=== PATIENT | male | born 1955 | race Caucasian/White ===

== ENCOUNTER 2018-06-22 15:04 | Emergency (ER) | END 2018-06-22 16:17 | disposition home or self-care (01) ==

== ENCOUNTER 2018-09-19 14:52 | Emergency (ER) | payer OTHER ==
[~2018-09-19] VITALS: Ht 172.7 cm; Wt 90.0 kg
[~2018-09-19 14:52] MED LIST: HC30CR25 TOP
[2018-09-19 15:06] VITALS: BP 140/78; PULSE 92; RESP 20; Ht 172.7 cm; Wt 90.0 kg
[2018-09-19] MEDS ORDERED: SULF1TAB31 PO (18:55)
[2018-09-19] MEDS ORDERED: CEPH-443 PO (18:55)
--- NOTE | 2018-09-19 20:54 | ERD ---
ER Documentation Chief Complaint Chief Complaint multiple rash on genital area - abscess; already presdribed w/ cream by pmd HPI 63-year-old male presents with history of mass on his upper left scrotal area. States the mass started 2 weeks ago and has been progressively getting bigger. States that it does not hurt when palpated. He denies any dysuria, fevers, or pain. Denies any testicular pain or any trauma to the area. Not taking any treatments. ROS All systems reviewed and are negative except as per history of present illness. Medications Home Meds Active Scripts Cephalexin* (Keflex*) 500 Mg Capsule, 500 MG PO QID for cyst for 7 Days, CAP Prov:FRANCISCO STEVEN 09/19/18 Sulfamethoxazole/Trimethoprim* (Bactrim Ds* Tablet) 1 Each Tablet, 1 TAB PO BID for cyst for 7 Days, #14 TAB Prov:FRANCISCO STEVEN 09/19/18 Hydrocortisone* Topical (Hydrocortisone* Topical) 2.5%-28.3 Gm Cream..g., 1 APPLIC TOP BID, #1 TUB Prov:MARIS SEYMOUR MD 06/22/18 Allergies Allergies: Coded Allergies: No Known Allergy (Unverified , 06/22/18) PMhx/Soc Medical and Surgical Hx: pt denies Surgical Hx Hx Cardiac Disorders: Yes (HTN) Hx Miscellaneous Medical Probl: Yes (DM) Hx Alcohol Use: Yes Hx Substance Use: No Hx Tobacco Use: Yes Smoking Status: Never smoker Physical Exam Vitals Vital Signs Date Temp Pulse Resp B/P (MAP) Pulse Ox O2 O2 Flow FiO2 Time Delivery Rate 09/19/18 98.7 92 20 140/78 98 15:06 (98) Physical Exam Const: No acute distress Head: Atraumatic Eyes: Normal Conjunctiva ENT: Normal External Ears, Nose and Mouth. Neck: Full range of motion. No meningismus. Resp: Clear to auscultation bilaterally Cardio: Regular rate and rhythm, no murmurs : Approximately 1 cm round indurated mass located in the upper left scrotal area. Mass is nonfluctuant or erythematous and nontender to palpation. Mass is contained within the scrotal wall and not affecting the testicles. Testicles are non-tender to palpation and nonedematous. There is no transverse lie. Otherwise scrotum is nonerythematous or edematous. Neur: Awake and alert Psych: Normal Mood and Affect Procedures/MDM 63-year-old male presents with history of mass on his upper left scrotal area. States the mass started 2 weeks ago and has been progressively getting bigger. States that it does not hurt when palpated. He denies any dysuria, fevers, or pain. Denies any testicular pain or any trauma to the area. Not taking any treatments. Mass is indurated, nonfluctuant, tender to palpation or erythematous. There is no indication for drainage. Mass is consistent with possible cyst. Patient was prescribed Bactrim and Keflex and advised to return in 7 days to see if the mass gone gone down in size. In addition patient was advised to use warm compresses and soaks. There is no associated pain. I have low suspicion for testicular torsion, epididymitis, testicular cancer, or any other emergent condition. Denies past medical history. Denies allergies. Denies medications. Denies surgeries. Denies alcohol, tobacco, drug use. Up to date on vaccines. Departure Diagnosis: Primary Impression: Cyst Condition: Stable Patient Instructions: Abscess, Antiobiotic Treatment Only Additional Instructions: FOLLOW UP WITH YOUR PRIMARY CARE PHYSICIAN TOMORROW.Return to this facility if you are not improving as expected. Return to hospital in one week to have cyst revaluated after completion of antibiotics. FRANCISCO STEVEN Sep 19, 2018 20:54
== END 2018-09-19 19:22 | disposition home or self-care (01) ==
LOC: FTE 14:52
DX: L72.9 Follicular cyst of the skin and subcutaneous tissue, unspecified (principal); I10 Essential (primary) hypertension; E11.9 Type 2 diabetes mellitus without complications; Z87.891 Personal history of nicotine dependence
CPT/HCPCS: 99283